=== PATIENT | male | born 1965 | race Caucasian/White ===

== ENCOUNTER 2018-05-12 20:19 | Emergency (ER) | payer OTHER ==
[~2018-05-12] VITALS: Ht 190.5 cm; Wt 90.7 kg
[2018-05-12] MEDS ORDERED: SILVER SULFADIAZINE 1% CREAM 50 GM TP ONE (20:30)
[2018-05-12] MEDS ORDERED: HYDROMORPHONE 1 MG/1 ML DISP.SYRIN IM ONE (20:30)
[2018-05-12] MEDS ORDERED: ONDANSETRON ODT 4 MG TAB.RAPDIS SL ONE (20:30)
[2018-05-12] MEDS ORDERED: ONDANSETRON ODT 4 MG TAB.RAPDIS ONE (20:32)
[2018-05-12] MEDS ORDERED: HYDROMORPHONE 2 MG/1 ML DISP.SYRIN ONE (20:33)
[2018-05-12] MEDS ORDERED: LISINOPRIL (20:37)
[2018-05-12] MEDS ORDERED: ATORVASTATIN (20:37)
--- NOTE | 2018-05-12 21:36 | NUR ---
Pharmacist here. Only has 1 Silvadene cream available. aware.
[2018-05-12] MEDS ORDERED: SILVER SULFADIAZINE 1% CREAM 25 GM TUBE TP ONE (21:38)
[2018-05-12 21:45] VITALS: BP 161/99
--- NOTE | 2018-05-12 21:45 | NUR ---
Patient discharged to home in stable conditon. Written and verbal after care instructions given. Patient verbalizes understanding of instructions. Pt left ER in steady gait with family. Daughter will drive home. All belongings with pt. VSS. JOSE shaikh.
== END 2018-05-12 21:46 | disposition home or self-care (01) ==
LOC: ER 20:21
DX: T24.221A Burn of second degree of right knee, initial encounter (principal); T21.22XA Burn of second degree of abdominal wall, initial encounter; T22.112A Burn of first degree of left forearm, initial encounter; T22.111A Burn of first degree of right forearm, initial encounter; I10 Essential (primary) hypertension; E78.00 Pure hypercholesterolemia, unspecified; Z79.899 Other long term (current) drug therapy; X08.8XXA Exposure to other specified smoke, fire and flames, initial encounter; Y93.89 Activity, other specified; Y92.89 Other specified places as the place of occurrence of the external cause; Y99.8 Other external cause status
CPT/HCPCS: 16020; A4663; J1170; Q0162